=== PATIENT | male | born 1990 | race Caucasian/White ===

== ENCOUNTER 2017-12-20 19:55 | Emergency (ER) | payer BC ==
[~2017-12-20] VITALS: Ht 175.3 cm; Wt 95.5 kg
[~2017-12-20 19:55] MED LIST: ALBUTEROL0.09 MG/A1 IH; PEPTO BISMAL; ZYRTEC
[2017-12-20 19:58] VITALS: TEMP 97.1
[2017-12-20] MEDS ORDERED: MULTI VITAMINS1 TAB PO (20:01)
[2017-12-20] MEDS ORDERED: PRILOSEC 20MG20 MG PO (20:01)
[2017-12-20] MEDS ORDERED: CRUTCHES MC (22:15)
[2017-12-20] MEDS ORDERED: PERCOCET 325 MG1 TA2 PO (22:15)
[2017-12-20 22:59] VITALS: BP 136/90; PULSE 87
== END 2017-12-20 22:58 | disposition home or self-care (01) ==
LOC: COL.ER 19:55
DX: S82.851A Displaced trimalleolar fracture of right lower leg, initial encounter for closed fracture (principal); W09.1XXA Fall from playground swing, initial encounter
CPT/HCPCS: J2270; J7030